=== PATIENT | female | born 1960 | race Caucasian/White ===

== ENCOUNTER 2016-12-04 03:36 | Emergency (ER) | payer OTHER ==
[~2016-12-04] VITALS: Ht 157.5 cm; Wt 92.0 kg
[2016-12-04 03:43] VITALS: BP 133/87
[2016-12-04] MEDS ORDERED: FLEXERIL10 MG PO (04:01)
[2016-12-04] MEDS ORDERED: ULTRAM50 MG PO (04:01)
== END 2016-12-04 04:01 | disposition home or self-care (01) ==
LOC: EME 03:36
DX: S39.012A Strain of muscle, fascia and tendon of lower back, initial encounter (principal); X50.1XXA Overexertion from prolonged static or awkward postures, initial encounter
CPT/HCPCS: 99281; 99283